=== PATIENT | male | born 1955 | race Caucasian/White ===

== ENCOUNTER → 2017-07-20 06:47 | Outpatient (CLI) | payer MEDICAID, SELFPAY ==
--- NOTE | 2017-07-20 10:40 | PFTCOMP ---
COMPLETE PULMONARY FUNCTION TEST INTERPRETATION Brief HPI: Patient is a 62 year old male, currently under the care of Dr. Arrieta, who presents to [facility] for complete pulmonary function tests secondary to diagnosis of COPD. Respiratory therapist reports good effort and reproducible results. Interpretation: Forced expiration spirometry shows no large airways obstructive ventilatory defect with an FEV1 of 92% predicted. There is no significant bronchodilator response by ATS criteria. Spirograms are of good quality and plateau slowly, indicating slowly emptying areas of the lungs. The respiratory flow volume loop shows decreased expiratory flow rates at high lung volumes consistent with small airways obstruction. Lung volumes by body plethysmography show a normal total lung capacity at 6.04 L, 99% predicted. All other lung volumes are within normal limits. Diffusion capacity by carbon monoxide is normal at 109% predicted. The airway resistance is normal. Compared to previous pulmonary function tests from 01/15/2016, there has been normalization of pulmonary function testing. Impression: These pulmonary function tests are grossly within normal limits. Compared to previous, these findings would be consistent with asthma versus congestive heart failure, not COPD.
--- NOTE | 2017-07-20 10:43 | PFTCOMP_ITS ---
COMPLETE PULMONARY FUNCTION TEST INTERPRETATION Brief HPI: Patient is a 62 year old male, currently under the care of Dr. Arrieta, who presents to [facility] for complete pulmonary function tests secondary to diagnosis of COPD. Respiratory therapist reports good effort and reproducible results. Interpretation: Forced expiration spirometry shows no large airways obstructive ventilatory defect with an FEV1 of 92% predicted. There is no significant bronchodilator response by ATS criteria. Spirograms are of good quality and plateau slowly, indicating slowly emptying areas of the lungs. The respiratory flow volume loop shows decreased expiratory flow rates at high lung volumes consistent with small airways obstruction. Lung volumes by body plethysmography show a normal total lung capacity at 6.04 L , 99% predicted. All other lung volumes are within normal limits. Diffusion capacity by carbon monoxide is normal at 109% predicted. The airway resistance is normal. Compared to previous pulmonary function tests from 01/15/2016, there has been normalization of pulmonary function testing. Impression: These pulmonary function tests are grossly within normal limits. Compared to previous, these findings would be consistent with asthma versus congestive heart failure, not COPD.
== END ==
PROVIDERS: Family Provider Family Medicine; PCP Family Medicine; Visit Provider Nurse Practitioner Acute Care
DX: J44.9 Chronic obstructive pulmonary disease, unspecified (principal)
CPT/HCPCS: 94060; 94726; 94729

== ENCOUNTER → 2017-07-26 19:56 | Outpatient (CLI) | payer MEDICAID, SELFPAY | PROVIDERS: Family Provider Family Medicine; PCP Family Medicine; Visit Provider Nurse Practitioner Acute Care | DX: G47.33 Obstructive sleep apnea (adult) (pediatric) (principal); G47.19 Other hypersomnia | CPT/HCPCS: 95810 ==

== ENCOUNTER → 2017-08-12 11:05 | Outpatient (CLI) | payer MEDICAID, SELFPAY ==
[2017-08-12 11:20] VITALS: PULSE 62; PULSE 66; PULSE 82; PULSE 84; PULSE 86; PULSE 87; PULSE 88; PULSE 90; O2SAT 97; O2SAT 98; O2SAT 99
--- NOTE | 2017-08-12 12:26 | WT_ITS ---
PSN 6 Minute Walk Test - 6 Minute Walk Test 6 Minute Walk Test: 6 Minute Walk Test PSN:6-Minute Walk Test Start: 08/12/17 12: 00 Freq: Status: Active Protocol: [id number] Document 08/12/17 11:20 [facility] [place] (Rec: 08/12/17 12:03 [facility] [place] [id number]) 6 Minute Walk Test Date Performed 08/12/17 Time Performed 11:20 Height 5 ft 8 in Weight: 170 lb Weight in Pounds 170.[address]: Terrie Alfonso Assistive device used: None Pre-test Oxygen Delivery Method Room Air Pulse Ox (%) 99 Pulse Rate (60-100 beats/min) 66 Dyspnea Valerie Scale (0-10) 0.5 Exertion Valerie Scale (6-20) 6 1st minute Oxygen Delivery Method Room Air Pulse Ox (%) 98 Pulse Rate (60-100 beats/min) 82 Number of Rests Taken 0 2nd minute Oxygen Delivery Method Room Air Pulse Ox (%) 98 Pulse Rate (60-100 beats/min) 88 Number of Rests Taken 0 3rd minute Oxygen Delivery Method Room Air Pulse Ox (%) 97 Pulse Rate (60-100 beats/min) 87 Number of Rests Taken 0 4th minute Oxygen Delivery Method Room Air Pulse Ox (%) 97 Pulse Rate (60-100 beats/min) 84 Number of Rests Taken 0 5th minute Oxygen Delivery Method Room Air Pulse Ox (%) 98 Pulse Rate (60-100 beats/min) 90 Number of Rests Taken 0 6th minute Oxygen Delivery Method Room Air Pulse Ox (%) 98 Pulse Rate (60-100 beats/min) 86 Number of Rests Taken 0 Post-test Oxygen Delivery Method Room Air Pulse Ox (%) 99 Pulse Rate (60-100 beats/min) 62 Dyspnea Valerie Scale (0-10) 4 Exertion Valerie Scale (6-20) 14 Full Laps Walked 17 Partial Lap, Number of Tiles Walked 20 Total Distance Walked (ft) 1023 - Interpretation Interpretation: The patient ambulate at 1023 feet over the course of 6 minutes beginning on room air without assistive devices or breaks. Pretesting oxygen saturation was noted to be 99% on room air. With ambulation, the aicha oxygen saturation was 97%. There was no significant exertional oxygen desaturation. - Recommendations Recommendations: There is no indication for the use of supplemental oxygen at this time.
== END ==
PROVIDERS: Family Provider Family Medicine; PCP Family Medicine; Visit Provider Nurse Practitioner Acute Care
DX: J44.9 Chronic obstructive pulmonary disease, unspecified (principal)
CPT/HCPCS: 94618

== ENCOUNTER → 2017-08-30 20:00 | Outpatient (CLI) | payer MEDICAID, SELFPAY ==
--- NOTE | 2017-08-30 20:00 | DT_ITS ---
This patient was seen during an EMR downtime August 23, 2017 - August 30, 2017. This patient may have a combination of paper and electronic documentation or all paper documentation. All documentation is viewable within the e-chart portion of [email or web address] for each patient visit.
== END ==
PROVIDERS: Family Provider Family Medicine; PCP Family Medicine; Visit Provider Nurse Practitioner Acute Care
DX: G47.33 Obstructive sleep apnea (adult) (pediatric) (principal)
CPT/HCPCS: 95811

== ENCOUNTER → 2017-09-17 10:38 | Outpatient (CLI) | payer MEDICAID, SELFPAY ==
[2017-09-17 11:47] LABS: Absolute Lymphocyte Count 2.57 X10^3/ul (0.83-4.51); Basophil# 0.04 X10^3/uL; Basophil% 0.5 % (0-1); Eosinophil# 0.45 X10^3/uL; Eosinophils% 5.7 % (0-5); Hematocrit 44.4 % (40-54); Hemoglobin 15.5 g/dl (13.0-16.5); Lymphocyte # 2.57 X10^3/ul (4.0); Lymphocyte % 32.4 % (19-41); Mean Corp Hgb Conc 34.9 g/gl (32-36); Mean Corpuscular Hgb 32.7 pg (27.0-32.0); Mean Corpuscular Volume 93.7 fL (80-94); Mean Platelet Vol. 11.4 fl (6.2-12.0); Monocyte# 0.83 X10^3/uL; Monocyte% 10.5 % (0-10); Neutrophil # 4.01 X10^3/uL (2.7-7.7); Neutrophil % 50.6 % (47-70); POSITIVE COUNT NO; POSITIVE DIFFERENTIAL NO; POSITIVE MORPHOLOGY NO; Platelet Count 167 K/mm3 (150-450); RBC Distribution Width CV 12.5 % (11.6-14.6); RBC Distribution Width SD 42.3 fl (35.1-43.9); Red Blood Count 4.74 M/mm3 (4.6-6.2); White Blood Count 7.9 K/mm3 (4.4-11.0)
[2017-09-20 20:07] LABS: Alternaria alternata <0.10 kU/L (Class 0); Bermuda Grass <0.10 kU/L (Class 0); Bluegrass, Kentucky <0.10 kU/L (Class 0); Cat Hair/Dander, Standard <0.10 kU/L (Class 0); D farinae Mite <0.10 kU/L (Class 0); D pteronyssinus <0.10 kU/L (Class 0); Dog Epithelia <0.10 kU/L (Class 0); Elm, American White <0.10 kU/L (Class 0); Oak, White <0.10 kU/L (Class 0); Plantain, English <0.10 kU/L (Class 0); Ragweed, Short/Common <0.10 kU/L (Class 0)
[2017-09-21 09:58] LABS: Mouse Urine <0.10 kU/L (Class 0)
[2017-09-21 22:08] LABS: Aspirgillus flavus Negative (Neg:<1:1); Aspirgillus fumigatus Negative (Neg:<1:1); Aspirgillus niger Negative (Neg:<1:1)
[2017-09-24 12:08] LABS: Immunoglobulin E 196 IU/mL (0-100)
== END ==
PROVIDERS: Family Provider Family Medicine; PCP Family Medicine; Visit Provider Nurse Practitioner Acute Care
DX: J30.9 Allergic rhinitis, unspecified (principal)
CPT/HCPCS: 36415; 82785; 85025; 86003; 86606